=== PATIENT | male | born 1955 | race Caucasian/White ===

== ENCOUNTER 2017-05-11 15:58 | Emergency (ER) | payer MEDICAID, SELFPAY ==
[2017-05-11 16:28] VITALS: BP 131/82; PULSE 107; RESP 18; TEMP 36.9; O2SAT 94; BMI 20.3
[2017-05-11 16:38] LABS: UTC Influenza A Antigen Negative (Negative); UTC Influenza B Antigen Negative (Negative)
--- NOTE | 2017-05-11 16:39 | HMH.EDUTC ---
[facility] – [place] Disposition Clinical Impression: Acute bronchitis Qualifiers: Bronchitis organism: other organism Qualified Code(s): J20.8 - Acute bronchitis due to other specified organisms Disposition: Home, Self-Care Condition on Discharge: Good Additional Instructions: Antibiotics as ordered Follow-up with primary care on Saturday If symptoms worsen or do not improve return or be seen in the ER Tylenol or Motrin as needed for comfort Prescriptions: Azithromycin [Zithromax 250mg tab] 250 mg PO DIRECTED #6 tab Benzonatate [Tessalon Perle 100mg Cap] 100 mg PO BID PRN 7 Days #14 cap PRN Reason: Cough Referrals: Munir Douglas MD [Primary Care Provider] - Time of Disposition: 16:48 Medical Decision Making Vital Signs: 05/11/17 16:28 Temperature 98.4 F Temperature Source Temporal Artery Scan Pulse Rate [Right Brachial] 107 H Respiratory Rate 18 Blood Pressure [Right Arm] 131/82 Blood Pressure Mean [Right Arm] 98 Blood Pressure Source [Right Arm] Automatic Cuff Blood Pressure Position [Right Arm] Sitting 02 Sat by Pulse Oximetry 94 L Oxygen Delivery Method Room Air - Lab Data Lab Results 05/11/17 16:18: Influenza Type A Ag Negative, Influenza Type B Ag Negative Orders (Tests/Meds): ED MEDICATIONS Discontinued Medications Generic Name Dose Route Start Last Admin Trade Name Freq PRN Reason Stop Dose Admin Dexamethasone Sodium Phosphate 4 mg 05/11/17 16:48 Decadron 4mg/Ml 1ml Vial IM 05/11/17 16:49 ONCE ONE - Demetrius Inquiry Pt receiving controlled substance: No [facility] – [place] HPI - General Chief complaint: Shortness of Breath/Dyspnea Stated complaint: soa, cough, body aches Time Seen by Provider: 05/11/17 16:40 Mode of Arrival: Ambulatory Source of Information: Patient Limitations: No Limitations Description of Symptoms (Recalled from Triage Doc. by RN): ACHING, COUGH, SOA X2 DAYS HEENT Symptoms (Recalled from RN notes): No Resp Symptoms (Recalled from RN notes): Yes (COUGH, SOA) Skin Symptoms (Recalled from RN notes): No MS Symptoms (Recalled from RN notes): Yes (ACHES) Functional Status (Recalled from RN notes): N/A - History of Present Illness Provider Complaint: 62-year-old male presents today for cough, shortness of air, and tightness in his chest for 3 days. Patient states his was diagnosed with the flu she was given Tamiflu and Zithromax and he has taken 3 doses of the Zithromax. History of COPD. long discussion with pt he needed to be evaluaed in ed for chest pressure he decline macrina after long talk. - Related Data Previous Rx's Medication Instructions Recorded Azithromycin [Zithromax 250mg 250 mg PO DIRECTED #6 tab 05/11/17 tab] Benzonatate [Tessalon Perle 100mg 100 mg PO BID PRN 7 Days #14 cap 05/11/17 Cap] Allergies Allergy/AdvReac Type Severity Reaction Status Date / Time fenofibrate [FENOFIBRATE] Allergy Mild Verified 05/11/17 16:31 Rxpqovp-Lhf-Hcn Reductase Allergy Mild Verified 05/11/17 16:31 Inhibitor [[id number] REDUCTASE INHIBITOR] - Worker's Comp Is this a Worker's Comp case?: No [facility] History I have reviewed the patient's past medical history: Yes Medical History: Denies:: Cancer, Diabetes Mellitus Type 1, Diabetes Mellitus Type 2, MRSA Amputation: No Fractures: No - Social History Smoking Status: Current every day smoker Tobacco Type: cigarettes Alcohol Intake: never - Psychiatric History Expresses thoughts of harming self/others: None Suicide Plan Description: No Plan ROS Obtained: Yes All systems reviewed & no additional complaints, Yes Systems reviewed as appropriate & no additional complaints - Constitutional Constitutional: Reports system reviewed and no additional complaints, except as docu - Eyes Eyes: Reports system reviewed and no additional complaints, except as docu - ENT Ears, Nose, Mouth, and Throat: Reports system reviewed and no additional complaints, except a
--- NOTE | 2017-05-11 16:43 | ED_ITS ---
[facility] – [place] Disposition Clinical Impression: Acute bronchitis Qualifiers: Bronchitis organism: other organism Qualified Code(s): J20.8 - Acute bronchitis due to other specified organisms Disposition: Home, Self-Care Condition on Discharge: Good Additional Instructions: Antibiotics as ordered Follow-up with primary care on Saturday If symptoms worsen or do not improve return or be seen in the ER Tylenol or Motrin as needed for comfort Prescriptions: Azithromycin [Zithromax 250mg tab] 250 mg PO DIRECTED #6 tab Benzonatate [Tessalon Perle 100mg Cap] 100 mg PO BID PRN 7 Days #14 cap PRN Reason: Cough Referrals: Munir Douglas MD [Primary Care Provider] - Time of Disposition: 16:48 Medical Decision Making Vital Signs: 05/11/17 16:28 Temperature 98.4 F Temperature Source Temporal Artery Scan Pulse Rate [Right Brachial] 107 H Respiratory Rate 18 Blood Pressure [Right Arm] 131/82 Blood Pressure Mean [Right Arm] 98 Blood Pressure Source [Right Arm] Automatic Cuff Blood Pressure Position [Right Arm] Sitting 02 Sat by Pulse Oximetry 94 L Oxygen Delivery Method Room Air - Lab Data Lab Results 05/11/17 16:18: Influenza Type A Ag Negative, Influenza Type B Ag Negative Orders (Tests/Meds): ED MEDICATIONS Discontinued Medications Generic Name Dose Route Start Last Admin Trade Name Freq PRN Reason Stop Dose Admin Dexamethasone Sodium Phosphate 4 mg 05/11/17 16:48 Decadron 4mg/Ml 1ml Vial IM 05/11/17 16:49 ONCE ONE - Demetrius Inquiry Pt receiving controlled substance: No [facility] – [place] HPI - General Chief complaint: Shortness of Breath/Dyspnea Stated complaint: soa, cough, body aches Time Seen by Provider: 05/11/17 16:40 Mode of Arrival: Ambulatory Source of Information: Patient Limitations: No Limitations Description of Symptoms (Recalled from Triage Doc. by RN): ACHING, COUGH, SOA X2 DAYS HEENT Symptoms (Recalled from RN notes): No Resp Symptoms (Recalled from RN notes): Yes (COUGH, SOA) Skin Symptoms (Recalled from RN notes): No MS Symptoms (Recalled from RN notes): Yes (ACHES) Functional Status (Recalled from RN notes): N/A - History of Present Illness Provider Complaint: 62-year-old male presents today for cough, shortness of air , and tightness in his chest for 3 days. Patient states his was diagnosed with the flu she was given Tamiflu and Zithromax and he has taken 3 doses of the Zithromax. History of COPD. long discussion with pt he needed to be evaluaed in ed for chest pressure he decline macrina after long talk. - Related Data Previous Rx's Medication Instructions Recorded Azithromycin [Zithromax 250mg 250 mg PO DIRECTED #6 tab 05/11/17 tab] Benzonatate [Tessalon Perle 100mg 100 mg PO BID PRN 7 Days #14 cap 05/11/17 Cap] Allergies Allergy/AdvReac Type Severity Reaction Status Date / Time fenofibrate [FENOFIBRATE] Allergy Mild Verified 05/11/17 16:31 Rmikhfg-Eyv-Khr Reductase Allergy Mild Verified 05/11/17 16:31 Inhibitor [[id number] REDUCTASE INHIBITOR] - Worker's Comp Is this a Worker's Comp case?: No [facility] History I have reviewed the patient's past medical history: Yes Medical History: Denies:: Cancer, Diabetes Mellitus T
[2017-05-11 17:03] VITALS: BP 131/82; PULSE 107; RESP 18; TEMP 36.9; O2SAT 94
== END 2017-05-11 17:04 | disposition home or self-care (01) ==
PROVIDERS: Emergency Provider Nurse Practitioner Family; Family Provider Family Medicine; PCP Emergency Medicine
DX: J44.0 Chronic obstructive pulmonary disease with (acute) lower respiratory infection; F17.210 Nicotine dependence, cigarettes, uncomplicated; Z88.8 Allergy status to other drugs, medicaments and biological substances
CPT/HCPCS: 87804; 96372; 99202

== ENCOUNTER → 2017-05-27 15:35 | Outpatient (REF) | payer MEDICAID, SELFPAY ==
[2017-05-27 18:27] LABS: Basophils # 0.1 K/mm3 (0-0.2); Basophils % 0.7 % (0.1-2.0); Eosinophils # 0.3 K/mm3 (0.0-0.4); Hematocrit 47.5 % (42.0-52.0); Hemoglobin 15.6 g/dL (14.1-18.0); Lymphocytes # 3.5 K/mm3 (0.7-4.5); Mean Corpuscular HGB Conc 32.8 g/dL (31.8-35.4); Mean Corpuscular Volume 97.7 fl (80-94); Mean Platelet Volume 8.6 fl (7.4-10.4); Monocytes % 7.3 % (1.7-9.3); Platelet Count 343 K/mm3 (142-424); Red Blood Count 4.86 M/mm3 (4.60-6.20); Red Cell Distribution Width 12.9 % (11.5-17.5); White Blood Count 13.9 K/mm3 (4.8-10.8)
[2017-05-27 18:52] LABS: Alanine Aminotransferase 41 U/L (12-78); Albumin Level 3.8 gm/dL (3.4-5.0); Alkaline Phosphatase 118 U/L (46-116); Aspartate Amino Transferase 20 U/L (15-37); Bilirubin,Total 0.4 mg/dL (0.2-1.0); Blood Urea Nitrogen 9 mg/dL (7-18); Calcium 8.9 mg/dL (8.5-10.1); Carbon Dioxide 27 mmol/L (21.0-32.0); Chloride 103 mmol/L (98-107); Chol/HDL Ratio 3.5 (1-3.5); Cholesterol 183 mg/dL (140-200); Creatinine,Serum 0.82 mg/dL (0.70-1.30); Estimated Glomerular Filt Rate 95 ml/min (>60); GFR (African American) 115 ML/MIN (>60); Globulin 3.7 gm/dl (1.3-3.2); Glucose 100 mg/dL (74-106); HDL Cholesterol 52 mg/dL (27-67); LDL Cholesterol 74 mg/dL (0-130); Sodium 140 mmol/L (136-145); T4 (Thyroxine) 10.5 ug/dl (4.7-13.3); Thyroid Stimulating Hormone 0.89 uIU/ml (0.358-3.740); Total Protein,Serum 7.5 gm/dL (6.4-8.2); Triglycerides 284 mg/dL (30-200); VLDL Cholesterol 57 mg/dL (0-40)
[2017-05-27 20:08] LABS: Hemoglobin A1C 5.7 % (0.0-7.0)
[2017-05-29 10:26] LABS: Vitamin D 25 Hydroxy 12.8 ng/mL (30.0-100.0)
== END ==
LOC: LAB 15:35
PROVIDERS: Visit Provider Nurse Practitioner Family
DX: R53.83 Other fatigue (principal)
CPT/HCPCS: 80053; 80061; 82652; 83036; 84436; 84443; 85025

== ENCOUNTER → 2018-03-03 14:03 | Outpatient (CLI) | payer MEDICAID, SELFPAY ==
[2018-03-03 15:44] LABS: Alanine Aminotransferase 60 U/L (12-78); Albumin Level 4.1 gm/dL (3.4-5.0); Albumin/Globulin Ratio 1.1 (1.1-1.8); Alkaline Phosphatase 131 U/L (46-116); Anion Gap 12.4 mEq/L (5-15); Aspartate Amino Transferase 73 U/L (15-37); Bilirubin,Total 0.5 mg/dL (0.2-1.0); Blood Urea Nitrogen 7 mg/dL (7-18); Calcium 9.5 mg/dL (8.5-10.1); Carbon Dioxide 28 mmol/L (21.0-32.0); Chloride 99 mmol/L (98-107); Chol/HDL Ratio 5.3 (1-3.5); Cholesterol 228 mg/dL (140-200); Creatinine,Serum 0.84 mg/dL (0.70-1.30); Estimated Glomerular Filt Rate 92 ml/min (>60); GFR (African American) 111 ML/MIN (>60); Globulin 3.9 gm/dl (1.3-3.2); Glucose 101 mg/dL (74-106); HDL Cholesterol 43 mg/dL (27-67); LDL Cholesterol 152 mg/dL (0-130); Potassium 4.4 mmoL/L (3.5-5.1); Sodium 135 mmol/L (136-145); Triglycerides 164 mg/dL (30-200); VLDL Cholesterol 33 mg/dL (0-40)
[2018-03-05 14:16] LABS: Vitamin D 25 Hydroxy 64.9 ng/mL (30.0-100.0)
== END ==
PROVIDERS: Visit Provider Nurse Practitioner Family
DX: E55.9 Vitamin D deficiency, unspecified (principal); R53.83 Other fatigue; E78.5 Hyperlipidemia, unspecified
CPT/HCPCS: 80053; 80061; 82652

== ENCOUNTER → 2018-09-25 13:24 | Outpatient (CLI) | payer MEDICAID, SELFPAY ==
[2018-09-25 14:57] LABS: Alanine Aminotransferase 33 U/L (12-78); Albumin Level 3.9 gm/dL (3.4-5.0); Alkaline Phosphatase 135 U/L (46-116); Anion Gap 12.8 mEq/L (5-15); Aspartate Amino Transferase 21 U/L (15-37); Bilirubin,Total 0.5 mg/dL (0.2-1.0); Blood Urea Nitrogen 8 mg/dL (7-18); Calcium 9.6 mg/dL (8.5-10.1); Carbon Dioxide 29 mmol/L (21.0-32.0); Chloride 101 mmol/L (98-107); Chol/HDL Ratio 4.8 (1-3.5); Cholesterol 240 mg/dL (140-200); Creatinine,Serum 0.77 mg/dL (0.70-1.30); Estimated Glomerular Filt Rate 102 ml/min (>60); GFR (African American) 123 ML/MIN (>60); Globulin 3.8 gm/dl (1.3-3.2); Glucose 94 mg/dL (74-106); HDL Cholesterol 50 mg/dL (27-67); LDL Cholesterol 151 mg/dL (0-130); Potassium 4.8 mmoL/L (3.5-5.1); Sodium 138 mmol/L (136-145); Total Protein,Serum 7.7 gm/dL (6.4-8.2); Triglycerides 196 mg/dL (30-200); VLDL Cholesterol 39 mg/dL (0-40)
== END ==
PROVIDERS: Visit Provider Nurse Practitioner Family
DX: Z00.00 Encounter for general adult medical examination without abnormal findings (principal); J34.89 Other specified disorders of nose and nasal sinuses
CPT/HCPCS: 80053; 80061

== ENCOUNTER 2019-08-24 11:02 | Emergency (ER) | payer MEDICAID, SELFPAY ==
[2019-08-24 11:01] VITALS: BP 161/95; PULSE 104; RESP 12; TEMP 36.8; O2SAT 98; BMI 21.9
--- NOTE | 2019-08-24 11:03 | ECG_ITS ---
APPROVED REPORT Exam: Resting ECG HR:97 bpm ECG Measurements Heart Rate 97 AXES GA 170 P -11 QRSd 78 QRS 2 QT 364 T -5 QTc 462 <Conclusion> Sinus rhythm with occasional premature atrial complexes Otherwise normal ECG Electronically signed by : Brent Barton, 08/25/2019 13:23:23
--- NOTE | 2019-08-24 11:12 | CT_ITS ---
PROCEDURE: CT HEAD/BRAIN WO CON CLINICAL INDICATION: GENERALIZED WEAKNESS COMPARISON: No exams were available for comparison TECHNIQUE: Axial images obtained. All CT scans at the facility use one or more dose reduction, viz: automated exposure control, ma/kV adjustment per patient size (including targeted exams where dose is matched to indication, i.e. head), or iterative reconstruction technique. FINDINGS: No midline shift, mass effect, intracranial hemorrhage, hydrocephalus, or extra-axial fluid collection is evident. There is generalized atrophy with hypoattenuation of the periventricular white matter consistent with microangiopathic changes. The calvarium has an unremarkable appearance. No mastoid effusion. Mucosal thickening involves the ethmoid sinuses. There is lobular mucosal thickening involving the central aspect of frontal sinus and could be due to retention cyst IMPRESSION: No acute intracranial finding Dictated by: Kirk Ackerman MD 08/24/2019 12:14 Electronically signed by Kirk Ackerman MD in [place] 08/24/2019 12:14
--- NOTE | 2019-08-24 11:17 | CT_ITS ---
Procedure: CT ANGIO HEAD CLINICAL HISTORY: Weakness Generalized weakness COMPARISON: CT HEAD/BRAIN WO CON from 08/24/2019 TECHNIQUE: IV Contrast: 100ml Optiray 350 Axial images obtained with sagittal and coronal reformats. All CT scans at the facility use one or more dose reduction, viz: automated exposure control, ma/kV adjustment per patient size (including targeted exams where dose is matched to indication, i.e. head), or iterative reconstruction technique. FINDINGS: No aneurysm, arteriovenous malformation, or major intracranial occlusive process evident. Atherosclerotic changes are present involving the internal carotids bilaterally with calcific plaque with less than 50 percent stenosis. There is some luminal irregularity in the cavernous portion of the carotids with some minimal dilatation. This is consistent with atherosclerotic changes. No enhancing lesions are evident. IMPRESSION: Atheromatous changes. No aneurysm AVM or other significant anomaly. Dictated by: Kirk Ackerman MD 08/24/2019 12:42 Electronically signed by iKrk Ackerman MD in [place] 08/24/2019 12:42
--- NOTE | 2019-08-24 11:17 | CT_ITS ---
Procedure: CT ANGIO NECK CLINICAL HISTORY: Weakness Weakness COMPARISON: CXR CHEST(2 VIEWS-NOT PORTABLE) from 04/13/2013 CXR CHEST(2 VIEWS-NOT PORTABLE) from 04/07/2015 TECHNIQUE: IV Contrast: 100ml Optiray 350 Axial images obtained with sagittal and coronal reformats. All CT scans at the facility use one or more dose reduction, viz: automated exposure control, ma/kV adjustment per patient size (including targeted exams where dose is matched to indication, i.e. head), or iterative reconstruction technique. FINDINGS: There are atherosclerotic changes within the aortic arch and at the ostia the left subclavian artery. No significant stenosis of the great vessels. Right carotid: Atheromatous changes involve the ostium of the internal carotid artery on the right. There is some eccentric plaque at this area with 25 percent stenosis. Mild amount of soft plaque is present in the proximal right internal carotid. No significant stenotic lesions are evident on the right. Left carotid: Left carotid originates from the aortic arch with some minimal calcific plaque at the ostium without stenosis. Fibrocalcific plaque is present at the ostium of the internal carotid on the left with 25-30 percent stenosis. Small amount of plaque is present in the bulb without significant stenosis. Mid distal left ICA have an unremarkable appearance. The left vertebral is dominant with no significant stenosis. There is ostial narrowing of the right vertebral of approximately 40 percent. Nonvascular COPD with centrilobular emphysema. Partially calcified conglomerate mass noted in the right upper lobe. Bullous changes are present in the lung apices. There is asymmetric increase in soft tissue density in the left parapharyngeal region at the level of the uvula. Please correlate with direct visualization. A soft tissue mass/neoplasm is considered. This area measures approximately 1.9 cm by 1.3 cm. The uvula is slightly shifted toward the right. IMPRESSION: 1. No hemodynamic significant stenotic lesion of the great vessels or carotid arteries. There are scattered atheromatous changes as described above 2. Dominant left vertebral artery with 40 percent stenosis of the ostium of a small right vertebral artery. 3. Left parapharyngeal mass 1.9 x 1.3 cm. Recommend direct visualization. Neoplasm is considered 4. Centrilobular and panlobular emphysema with apical bullous changes with conglomerate mass in the right upper lobe Dictated by: Kirk Ackerman MD 08/24/2019 12:35 Electronically signed by Kirk Ackerman MD in [place] 08/24/2019 12:35
[2019-08-24 11:26] LABS: Basophils # 0.1 K/mm3 (0-0.2); Basophils % 0.5 % (0.1-2.0); Eosinophils # 0.2 K/mm3 (0.0-0.4); Eosinophils % 1.1 % (0.1-12.0); Hematocrit 47.9 % (42.0-52.0); Hemoglobin 16.6 g/dL (14.1-18.0); Lymphocytes # 3.5 K/mm3 (0.7-4.5); Lymphocytes % 24.7 % (10-50); Mean Corpuscular HGB Conc 34.6 g/dL (31.8-35.4); Mean Corpuscular Hemoglobin 33.5 pg (27.0-31.2); Mean Corpuscular Volume 96.8 fl (80-94); Mean Platelet Volume 8.4 fl (7.4-10.4); Monocytes # 0.8 K/mm3 (0.1-1.0); Monocytes % 5.7 % (1.7-9.3); Neutrophils # 9.5 K/mm3 (1.8-7.8); Neutrophils % 67.9 % (37.0-80.0); Platelet Count 300 K/mm3 (142-424); Red Blood Count 4.95 M/mm3 (4.60-6.20); Red Cell Distribution Width 13.1 % (11.5-17.5)
[2019-08-24 11:29] LABS: Chloride 103 mmol/L (98-107); Potassium 4.1 mmoL/L (3.5-5.1); Sodium 133 mmol/L (136-145)
[2019-08-24 11:32] LABS: Alanine Aminotransferase 24 U/L (12-78); Albumin Level 4.4 g/dl (3.5-5.0); Albumin/Globulin Ratio 1.3 (1.1-1.8); Alkaline Phosphatase 137 U/L (38-126); Anion Gap 11.1 mEq/L (5-15); Aspartate Amino Transferase 31 U/L (17-59); Bilirubin,Total 0.6 mg/dl (0.2-1.3); Blood Urea Nitrogen 4 mg/dl (9-20); Carbon Dioxide 23 mmol/L (22.0-30.0); Creatinine Clearance Estimated 66 mL/min (50-200); Estimated Glomerular Filt Rate 135 ml/min (>60); GFR (African American) 164 ML/MIN (>60); Globulin 3.4 g/dL (1.3-3.2); Total Protein,Serum 7.8 g/dl (6.3-8.2)
[2019-08-24 11:33] LABS: Calcium 9.6 mg/dl (8.4-10.2); Glucose 126 mg/dl (74-100)
[2019-08-24 11:45] LABS: Troponin I < 0.01 ng/ml (0.00-0.034)
--- NOTE | 2019-08-24 12:00 | HMH.EDGENADL ---
ED Disposition Clinical Impression: TIA (transient ischemic attack) Disposition: Home, Self-Care Condition on Discharge: Good Additional Instructions: After reviewing your labs and radiology, discussing your case with your primary care physician Dr. Douglas discharging you home at this time. You are to continue taking oral aspirin 81 mg once per day. After Stella wishes you to read present at his doctor's office at 10 AM tomorrow for further evaluation for your possible transient ischemic attack. Highly recommend that you keep this scheduled appointment. Should your symptoms worsen, please return to the emergency department for further evaluation. Referrals: Munir Douglas MD [Primary Care Provider] - - Critical Care Critical Care Time: No Attestation: On 08/24/19, the high probability of a clinically significant, sudden or life threatening deterioration of the following system(s) required my full and direct attention, intervention and personal management. The time I documented below is in addition to time spent performing reported procedures but includes the following listed in this critical care notation. Medical Decision Making - Demetrius Inquiry Pt receiving controlled substance: No Demetrius was queried for this patient: No Vital Signs: 08/24/19 11:01 08/24/19 12:33 08/24/19 13:44 Temperature 98.2 F Temperature Source Oral Pulse Rate [Right Radial] 104 H 101 H 95 H Respiratory Rate 12 17 Blood Pressure [Right Arm] 161/95 H 141/79 H 145/79 H Blood Pressure Mean [Right Arm] 117 99 101 Blood Pressure Source [Right Arm] Automatic Cuff Automatic Cuff Automatic Cuff Blood Pressure Position [Right Arm] Sitting Supine Supine 02 Sat by Pulse Oximetry 98 100 99 Oxygen Delivery Method Room Air Nasal Cannula Oxygen Flow Rate (LPM) 2 - Lab Data Lab Results 08/24/19 11:00: WBC 14.0 H, RBC 4.95, Hgb 16.6, Hct 47.9, MCV 96.8 H, MCH 33.5 H, MCHC 34.6, RDW 13.1, Plt Count 300, MPV 8.4, Neut % (Auto) 67.9, Lymph % (Auto) 24.7, [place] % (Auto) 5.7, Eos % (Auto) 1.1, Baso % (Auto) 0.5, Neut # (Auto) 9.5 H, Lymph # (Auto) 3.5, [place] # (Auto) 0.8, Eos # (Auto) 0.2, Baso # (Auto) 0.1 08/24/19 11:00: Sodium 133 L, Potassium 4.1, Chloride 103, Carbon Dioxide 23, Anion Gap 11.1, BUN 4 L, Creatinine 0.60 L, Estimated Creat Clear 66, Estimated GFR 135, Est GFR ( Amer) 164, Glucose 126 H, Calcium 9.6, Total Bilirubin 0.6, AST 31, ALT 24, Alkaline Phosphatase 137 H, Troponin I < 0.01, Total Protein 7.8, Albumin 4.4, Globulin 3.4 H, Albumin/Globulin Ratio 1.3 08/24/19 13:02: Urine Color Yellow, Urine Appearance Clear, Urine pH 7.0, Ur Specific [place] <= 1.005, Urine Protein Negative, Urine Glucose (UA) Negative, Urine Ketones Negative, Urine Blood Negative, Urine Nitrate Negative, Urine Bilirubin Negative, Urine Urobilinogen 0.2, Ur Leukocyte Esterase Negative, Urine RBC Occasional, Urine WBC 3-5, Ur Squamous Epith Cells Occasional, Urine Bacteria None 08/24/19 14:15: Troponin I < 0.01 Result diagrams: 08/24/19 11:00 08/24/19 11:00 Orders (Tests/Meds): ED MEDICATIONS Discontinued Medications Generic Name Dose Route Start Last Admin Trade Name Salome PRN Reason Stop Dose Admin Acetaminophen 500 mg 08/24/19 12:00 08/24/19 12:10 Tylenol 500mg Tablet PO 08/24/19 12:01 500 mg ONCE ONE Administration Ibuprofen 400 mg 08/24/19 12:00 08/24/19 12:10 Motrin 400mg Tablet PO 08/24/19 12:01 400 mg ONCE ONE Administration Ioversol 100 ml 08/24/19 12:00 08/24/19 12:02 Rad-Optiray 350 100ml Vial IV 08/24/19 12:01 100 ml ONCE ONE Administration Protocol Sodium Chloride 50 ml 08/24/19 12:00 08/24/19 12:02 Rad-Ns 50ml Vial IV 08/24/19 12:01 50 ml ONCE ONE Administration Sodium Chloride 10 ml 08/24/19 12:00 08/24/19 12:02 Rad-Saline Flush 10ml Syringe IV 08/24/19 12:01 10 ml ONCE ONE Administration ORDERS Category Date Time Status Troponin I Q3H Lab 08/24/19 17
[2019-08-24 12:33] VITALS: BP 141/79; PULSE 101; RESP 17; O2SAT 100
[2019-08-24 13:09] LABS: Microscopic, Urine URINE MICROSCOPIC (MICROSCOPIC)
[2019-08-24 13:10] LABS: Appearance,Urine CLEAR (Clear); Bilirubin,Urine Negative (Negative); Blood, Urine Negative (Negative); Color,Urine YELLOW (Yellow); Glucose,Urine (UA) Negative (Negative); Ketones,Urine Negative (Negative); Leukocyte Esterase,Urine Negative (Negative); Nitrate,Urine Negative (Negative); Protein,Urine Negative (Negative); Specific Gravity, Urine <= 1.005 (1.005-1.030); Urobilinogen,Urine 0.2 EU/dl (0.2)
[2019-08-24 13:21] LABS: RBC,Urine Occasional #/hpf (0-3); Squamous Epithelial Cell,Urine Occasional #/hpf (0-5)
--- NOTE | 2019-08-24 13:21 | PC.NURSE ---
Paged Dr Douglas at this time
--- NOTE | 2019-08-24 13:40 | PC.NURSE ---
speaking to Dr Douglas
[2019-08-24 13:44] VITALS: BP 145/79; PULSE 95; O2SAT 99
[2019-08-24 14:50] LABS: Troponin I < 0.01 ng/ml (0.00-0.034)
[2019-08-24 15:12] VITALS: BP 140/85; PULSE 80; RESP 20; TEMP 36.8; O2SAT 98
== END 2019-08-24 15:15 | disposition home or self-care (01) ==
PROVIDERS: Emergency Provider Emergency Medicine; PCP Emergency Medicine
DX: G45.8 Other transient cerebral ischemic attacks and related syndromes (principal); I10 Essential (primary) hypertension; E78.5 Hyperlipidemia, unspecified; J44.9 Chronic obstructive pulmonary disease, unspecified; Z79.899 Other long term (current) drug therapy; Z88.8 Allergy status to other drugs, medicaments and biological substances
CPT/HCPCS: 36415; 70450; 70496; 70498; 80053; 81001; 84484; 85025; 93005; 99284; Q9967

== ENCOUNTER 2022-06-11 00:58 | Inpatient (IN) | payer MEDICARE, SELFPAY ==
[2022-06-11] VITALS (13 sets, daily range): BP systolic 130–171; BP diastolic 70–111; PULSE 65–110; RESP 15–20; TEMP 36.6–36.9; O2SAT 88–99; BMI 14.9; BMI 15.2
--- NOTE | 2022-06-11 01:08 | XR_ITS ---
PROCEDURE INFORMATION: Exam: XR Left Hip Exam date and time: 06/11/2022 1:41 AM Age: 67 years old Clinical indication: Injury or trauma; Fall; Additional info: Fall left hip pain TECHNIQUE: Imaging protocol: Radiologic exam of the left hip. Views: 2 or 3 views hip with pelvis when performed. COMPARISON: No relevant prior studies available. FINDINGS: Bones/joints: Severe degenerative changes of the lower lumbar spine. Moderate bilateral hip joint space narrowing. Left femoral head and neck junction impacted acute fracture. No dislocation. Soft tissues: Unremarkable. IMPRESSION: Left femoral fracture.
--- NOTE | 2022-06-11 01:08 | XR_ITS ---
PROCEDURE INFORMATION: Exam: XR Chest Exam date and time: 06/11/2022 1:41 AM Age: 67 years old Clinical indication: Injury or trauma; Fall TECHNIQUE: Imaging protocol: Radiologic exam of the chest. Views: 1 view. COMPARISON: CT ANGIO NECK 08/24/2019 11:46 AM FINDINGS: Lungs: The lungs are hyperinflated. Diffuse prominence of the interstitium. Right upper lobe scarring with multiple clustered granulomas. Additional left lower lobe small granuloma. Pleural spaces: Unremarkable. No pleural effusion. No pneumothorax. Heart/Mediastinum: Unremarkable. No cardiomegaly. Bones/joints: Unremarkable. IMPRESSION: No definite acute findings. Chronic emphysematous changes.
--- NOTE | 2022-06-11 01:08 | CT_ITS ---
PROCEDURE INFORMATION: Exam: CT Head Without Contrast Exam date and time: 06/11/2022 1:42 AM Age: 67 years old Clinical indication: Injury or trauma; Fall TECHNIQUE: Imaging protocol: Computed tomography of the head without contrast. Radiation optimization: All CT scans at this facility use at least one of these dose optimization techniques: automated exposure control; mA and/or kV adjustment per patient size (includes targeted exams where dose is matched to clinical indication); or iterative reconstruction. REPORTING DATA: Count of CT and Cardiac NM exams in prior 12 months: This patient has received 2 known CTs and 0 known cardiac nuclear medicine studies in the 12 months prior to the current study. COMPARISON: CT HEAD/BRAIN WO CON 08/24/2019 11:42 AM FINDINGS: Brain: [id number] atrophy. No intracranial hemorrhage. No mass. Several scattered foci of decreased attenuation within periventricular/subcortical white matter. No edema. Cerebral ventricles: No hydrocephalus. Paranasal sinuses: Scattered minimal mucosal thickening. Mastoid air cells: No significant effusion. Orbital cavities: Small calcification or foreign body along RIGHT anterior globe. Bones/joints: No acute fracture. Soft tissues: Unremarkable. Vasculature: Atherosclerotic disease of intracranial arteries. IMPRESSION: 1. No intracranial hemorrhage. 2. Probable chronic microvascular ischemic changes. 3. Small calcification or foreign body along RIGHT globe.
--- NOTE | 2022-06-11 01:08 | CT_ITS ---
PROCEDURE INFORMATION: Exam: CT Cervical Spine Without Contrast Exam date and time: 06/11/2022 1:44 AM Age: 67 years old Clinical indication: Injury or trauma; Fall TECHNIQUE: Imaging protocol: Computed tomography of the cervical spine without contrast. Radiation optimization: All CT scans at this facility use at least one of these dose optimization techniques: automated exposure control; mA and/or kV adjustment per patient size (includes targeted exams where dose is matched to clinical indication); or iterative reconstruction. REPORTING DATA: Count of CT and Cardiac NM exams in prior 12 months: This patient has received 2 known CTs and 0 known cardiac nuclear medicine studies in the 12 months prior to the current study. COMPARISON: CT ANGIO NECK 08/24/2019 11:46 AM FINDINGS: Bones/joints: No acute fracture. Degenerative retrolithesis of mid cervical spine. Degenerative retrolithesis of lower cervical spine. Discs/Spinal canal/Neural foramina: Severe degenerative disc disease within mid cervical spine. Severe degenerative disc disease within lower cervical spine.Moderate indentation thecal sac/cord midcervical spine. Mild indentation thecal sac/cord lower cervical spine. Neuroforaminal narrowing within mid and lower cervical spine. Lungs: Emphysematous changes. Vasculature: Atherosclerotic disease of visualized arteries. Soft tissues: Unremarkable. IMPRESSION: No fracture.
[2022-06-11 01:20] LABS: Basophils # 0.1 K/mm3 (0-0.2); Basophils % 1.1 % (0.1-2.0); Eosinophils # 0.2 K/mm3 (0.0-0.4); Eosinophils % 1.8 % (0.1-12.0); Hemoglobin 13.8 g/dL (14.1-18.0); Lymphocytes # 2.4 K/mm3 (0.7-4.5); Lymphocytes % 27.2 % (10-50); Mean Corpuscular HGB Conc 32.1 g/dL (31.8-35.4); Mean Corpuscular Hemoglobin 33.3 pg (27.0-31.2); Mean Corpuscular Volume 103.7 fl (80-94); Mean Platelet Volume 8.7 fl (7.4-10.4); Monocytes # 0.5 K/mm3 (0.1-1.0); Monocytes % 5.9 % (1.7-9.3); Neutrophils # 5.7 K/mm3 (1.8-7.8); Platelet Count 233 K/mm3 (142-424); Red Blood Count 4.15 M/mm3 (4.60-6.20); Red Cell Distribution Width 13.3 % (11.5-17.5); White Blood Count 8.9 K/mm3 (4.8-10.8)
[2022-06-11 01:23] LABS: Chloride 94 mmol/L (98-107); Potassium 3.8 mmoL/L (3.5-5.1); Sodium 129 mmol/L (136-145)
[2022-06-11 01:26] LABS: Alanine Aminotransferase 101 U/L (12-78); Albumin Level 4.3 g/dl (3.5-5.0); Albumin/Globulin Ratio 1.4 (1.1-1.8); Alkaline Phosphatase 113 U/L (38-126); Anion Gap 12.8 mEq/L (5-15); Aspartate Amino Transferase 107 U/L (17-59); Bilirubin,Total 0.4 mg/dl (0.2-1.3); Blood Urea Nitrogen 6 mg/dl (9-20); Calcium 8.2 mg/dl (8.4-10.2); Carbon Dioxide 26 mmol/L (22.0-30.0); Creatinine Clearance Estimated 50 mL/min (50-200); Estimated Glomerular Filt Rate 165 ml/min (>60); Ethyl Alcohol 249 mg/dl (0-10); GFR (African American) 200 ML/MIN (>60); Glucose 136 mg/dl (74-100); Total Protein,Serum 7.3 g/dl (6.3-8.2)
--- NOTE | 2022-06-11 01:37 | PC.NURSE ---
Pt gone to RAD via stretcher
--- NOTE | 2022-06-11 01:38 | CT_ITS ---
PROCEDURE INFORMATION: Exam: CT Left Lower Extremity Without Contrast, Hip Exam date and time: 06/11/2022 1:47 AM Age: 67 years old Clinical indication: Injury or trauma; Fall; Additional info: Hip FX TECHNIQUE: Imaging protocol: CT of the left lower extremity without contrast was performed. Exam focused on the hip. Radiation optimization: All CT scans at this facility use at least one of these dose optimization techniques: automated exposure control; mA and/or kV adjustment per patient size (includes targeted exams where dose is matched to clinical indication); or iterative reconstruction. REPORTING DATA: Count of CT and Cardiac NM exams in prior 12 months: This patient has received 2 known CTs and 0 known cardiac nuclear medicine studies in the 12 months prior to the current study. COMPARISON: CR XR HIP LT 2-3V W/PELVIS 06/11/2022 1:41 AM FINDINGS: Bones/joints: Moderate narrowing of the left hip joint space. There is a impacted mildly displaced comminuted acute fracture of the left femoral head and neck junction. No dislocation detected. Soft tissues: Normal. IMPRESSION: Left femoral acute fracture as described.
--- NOTE | 2022-06-11 01:38 | ECG_ITS ---
APPROVED REPORT Exam: Resting ECG HR:102 bpm ECG Measurements Heart Rate 102 AXES NH 156 P 80 QRSd 92 QRS 80 QT 362 T 77 QTc 421 Conclusion SINUS TACHYCARDIA ABNORMAL RHYTHM ECG UNCONFIRMED REPORT Electronically signed by : Peng Pelaez MD 06/12/2022 03:05:07
--- NOTE | 2022-06-11 01:38 | HMH.EDFALL ---
Discharge Plan Disposition Patient Disposition: Admitted As Inpatient Chief Complaint: Fall Prescriptions Prescriptions: No Action lisinopril 5 mg Tablet 5 mg PO DAILY Referrals Follow up/Referrals: Ziggy Layne MD [Primary Care Provider] - See instructions Clinical Impressions Clinical Impression: Closed hip fracture, Alcohol intoxication Discharge ED Provider: Stella (ED)Munir HPI General Chief Complaint: Fall Stated Complaint: Fall Time Seen by Provider: 06/11/22 01:39 Mode of Arrival: EMS Source of Information: Patient, Spouse, EMS and Medical Record Limitations: Physical Limitations Description of Symptoms (Recalled from ER Triage Doc. by RN): pt to the ED after falling off his barstool at home. pt reports he fell and landed on his left side. pt denies any head/ neck injury. pt reports left hip pain and drinking 14 beers in the spand of the day. History of Present Illness HPI Narrative: fall at home with lt hip pain - has been using etoh - no other c/o MD complaint: fall Onset (ago): hour(s) Fall from: chair Fall witnessed: no Place fall occurred: home Loss of consciousness: none Prolonged down time: no Symptoms prior to fall: none Context: alcohol use Location of injury - extremities: Left: thigh Severity: moderate Associated symptoms (after fall): denies Related Data Home Medications Medication Instructions Recorded Confirmed lisinopril 5 mg tablet 5 mg PO DAILY High blood pressure 06/11/22 06/11/22 Allergies Allergy/AdvReac Type Severity Reaction Status Date / Time fenofibrate [FENOFIBRATE] Allergy Mild Verified 04/27/21 11:51 Vstwdnj-FXW-IoP Reductase Allergy Mild Verified 04/27/21 11:51 Inhibitor [HMMNLQF-FCZ-DPM REDUCTASE INHIBITOR] [facility] Disclaimer: The information contained in this section may have been updated after the patient was seen, as this information can be updated by other users. Social History Smoking Status: Current every day smoker tobacco type: cigarettes packs per day: 1 alcohol intake: current substance use type: denies use current occupational status: retired Travel in the last 8 weeks: None household members: spouse housing: house ROS Obtained: Yes All systems reviewed & no additional complaints except as documented Physical Exam General General appearance: alert Head Head exam: normocephalic Eye Eye exam: Present PERRL and EOMI ENT ENT exam: Present mucous membranes dry Neck Neck exam: Present trachea midline Respiratory Respiratory exam: Present other (bilat rhonchi ); Absent respiratory distress Cardiovascular Cardiovascular exam: Present regular rate and systolic murmur Abdominal Exam Abdominal exam: Present soft Expanded Lower Extremity Exam Left: Hip/Pelvis exam: Present tenderness, shortening of leg and pain on hip/pelvis palpation Neurovascular/Tendon exam: Absent pulse deficit Neurological Exam Neurological exam: Present alert, oriented X3, CN II-XII intact and other (gcs=15); Absent motor sensory deficit Psychiatric Psychiatric exam: Present normal affect Skin Skin exam: Absent rash Medical Decision Making Medical Records Medical records reviewed: Yes I reviewed the patient's medical records. Demetrius Inquiry Pt receiving controlled substance: No Vital Signs: 06/11/22 00:58 Temperature 98.3 F Temperature Source Oral Pulse Rate [Left Radial] 101 H Respiratory Rate 15 Blood Pressure [Right Arm] 144/83 H Blood Pressure Mean [Right Arm] 103 Blood Pressure Source [Right Arm] Automatic Cuff Blood Pressure Position [Right Arm] Sitting 02 Sat by Pulse Oximetry 88 L Oxygen Delivery Method Room Air Lab Data Lab results reviewed: Yes I reviewed the patient's lab results. Lab Results 06/11/22 01:00: WBC 8.9, RBC 4.15 L, Hgb 13.8 L, Hct 43.0, MCV 103.7 H, MCH 33.3 H, MCHC 32.1, RDW 13.3, Plt Count 233, MPV 8.7, Neut % (Auto) 64.0, Lymph % (Auto) 27.2, [place] % (Au
[2022-06-11 01:59] LABS: Coronavirus 19, PCR Not Detected (NotDetected); Influenza A, PCR Not Detected (NotDetected); Influenza B, PCR Not Detected (NotDetected)
--- NOTE | 2022-06-11 04:06 | PC.NURSE ---
Pt readjusted in bed. No other needs at this time.
[2022-06-11 04:31] LABS: Triglycerides 87 mg/dl (30-150); VLDL Cholesterol 17 mg/dL (0-40)
[2022-06-11 04:32] LABS: Chol/HDL Ratio 1.8 (1-3.5); Cholesterol 173 mg/dl (140-200); HDL Cholesterol 96 mg/dl (40-60); Magnesium 1.8 mg/dl (1.6-2.3)
[2022-06-11 04:34] LABS: Activated Partial Thrombo Time 26.2 seconds (22.8-30.6); INR 0.93 (0.9-1.1); Prothrombin Time 10.1 seconds (10.1-12.5)
--- NOTE | 2022-06-11 04:36 | EXP.HP ---
History of Present Illness *Admission Date: 06/11/22 *Reason for visit:: Fall *History of present illness: This is a 67-year-old male with past medical history of hypertension and alcohol abuse who presents emergency department today after falling off his barstool. He reports increased alcohol intake this evening up to 15 beers and fell off his barstool landing on his left side. He had immediate pain on his left side with inability to ambulate. He does endorse chronic heavy drinking up to 8 beers daily but states he drank more last night due Circumstances within his social life. He also admits to heavy smoking, 2 packs/day. He reports prior history of withdrawal symptoms to include daily tremors prior to engaging in alcohol intake.He denies any chest pain, shortness of breath or palpitations prior to the fall. Emergency department work-up significant for left femoral head fracture noted on CT. All other traumagram without abnormalities. Alcohol level 249 at the time of admission.All other laboratory evaluation stable except for mild hyponatremia.He is admitted to the hospital service for further evaluation and management. [facility] Disclaimer: The information contained in this section may have been updated after the patient was seen, as this information can be updated by other users. Medical History Asthma COPD (chronic obstructive pulmonary disease) History of transient ischemic attack (TIA) Hypertension Family History (Updated 06/11/22 @ 05:20 by Valerie White RN) No significant family history Social History (Updated 06/11/22 @ 05:22 by Valerie White RN) Smoking Status: Current every day smoker tobacco type: cigarettes packs per day: 1 alcohol intake: current substance use type: denies use current occupational status: retired Travel in the last 8 weeks: None household members: spouse housing: house marital status: Review of Systems Review of Systems Review of systems:: pertinent systems reviewed and negative unless documented below *Musculoskeletal Musculoskeletal: Reports arthralgias, Reports deformity and Reports limited range of motion Psychiatric Psychiatric: Reports depression and Reports hopelessness Meds Home Medications and Allergies Home Medications Medication Instructions Recorded Confirmed Type albuterol sulfate 90 mcg/actuation 2 puff inhalation Q6H PRN 06/11/22 06/11/22 History aerosol inhaler Shortness Of Breath lisinopril 5 mg tablet 5 mg PO DAILY High blood pressure 06/11/22 06/11/22 History New Prescriptions to Start Prescriptions: Allergies Allergy/AdvReac Type Severity Reaction Status Date / Time fenofibrate [FENOFIBRATE] Allergy Mild Verified 04/27/21 11:51 Qjsedti-EBB-XyY Reductase Allergy Mild Verified 04/27/21 11:51 Inhibitor [TRNVWRN-RWL-RAJ REDUCTASE INHIBITOR] Exam Data for Last 24 hours Vital signs and Labs for Last 24 Hours: Temp Pulse Resp BP Pulse Ox 98.3 F 104 H 16 134/79 98 06/11/22 04:15 06/11/22 04:15 06/11/22 04:15 06/11/22 04:15 06/11/22 03:30 Laboratory Results - last 24 hr 06/11/22 01:00: WBC 8.9, RBC 4.15 L, Hgb 13.8 L, Hct 43.0, MCV 103.7 H, MCH 33.3 H, MCHC 32.1, RDW 13.3, Plt Count 233, MPV 8.7, Neut % (Auto) 64.0, Lymph % (Auto) 27.2, [place] % (Auto) 5.9, Eos % (Auto) 1.8, Baso % (Auto) 1.1, Neut # (Auto) 5.7, Lymph # (Auto) 2.4, [place] # (Auto) 0.5, Eos # (Auto) 0.2, Baso # (Auto) 0.1 06/11/22 01:00: Sodium 129 L, Potassium 3.8, Chloride 94 L, Carbon Dioxide 26, Anion Gap 12.8, BUN 6 L, Creatinine 0.50 L, Estimated Creat Clear 50, Estimated GFR 165, Est GFR ( Amer) 200, Glucose 136 H, Calcium 8.2 L, Total Bilirubin 0.4, AST 107 H, ALT 101 H, Alkaline Phosphatase 113, Total Protein 7.3, Albumin 4.3, Globulin 3.0, Albumin/Globulin Ratio 1.4 06/11/22 01:00: Plasma/Serum Alcohol 249 H 06/11/22 01:00: Magnesium 1.8, Triglycerid
--- NOTE | 2022-06-11 06:05 | PC.NURSE ---
notified obed hidalgo of patient requesting nicotine patch
--- NOTE | 2022-06-11 06:15 | PC.NURSE ---
spoke with house regarding patients fluids ordered
--- NOTE | 2022-06-11 07:23 | HMH.PHAINT1 ---
Pharmacy Intervention Comments: Reconciled patient's home medications using pharmacy fill history and patient interview.
--- NOTE | 2022-06-11 10:54 | EXP.ORTH.CON ---
History of Present Illness *Admission Date: 06/11/22 *Reason for visit:: Left hip fracture *History of present illness: Mr. Tovar is a 67 year old male patient admitted to the acute inpatient service after sustaining a mechanical fall at home yesterday 06/10/2022. He has a past medical history of alcohol abuse and reports that he was drinking heavily yesterday evening, causing him to fall of his barstool and onto his left hip. He reports that he had immediate pain in his left hip and was unable to ambulate, so he was subsequently brought to the [facility] emergency department where xray demonstrated a left subcapital femoral neck fracture. This morning the patient is lying comfortably in bed and his son is present at the bedside. He continues to report left hip pain but states that it is well controlled with as needed pain medication and rest. No history of any distal tingling/numbness. He states that at baseline he lives in his own home and ambulates without the use of any walking aides. He is a chronic smoker and his past medical history is significant for alcohol abuse, hypertension, and asthma. He does not wear supplemental oxygen at home and denies taking any blood thinners; he reports that he occasionally takes 81 mg aspirin. He denies any other injuries, symptoms, or concerns at this time. . [facility] Disclaimer: The information contained in this section may have been updated after the patient was seen, as this information can be updated by other users. Medical History Asthma COPD (chronic obstructive pulmonary disease) History of transient ischemic attack (TIA) Hypertension Family History (Updated 06/11/22 @ 05:20 by Valerie White RN) Other No significant family history Social History (Updated 06/11/22 @ 05:22 by Valerie White RN) Smoking Status: Current every day smoker tobacco type: cigarettes packs per day: 1 alcohol intake: current substance use type: denies use current occupational status: retired Travel in the last 8 weeks: None household members: spouse housing: house marital status: Meds Home Medications and Allergies Home Medications Medication Instructions Recorded Confirmed Type albuterol sulfate 90 mcg/actuation 2 puff inhalation Q6H PRN 06/11/22 06/11/22 History aerosol inhaler Shortness Of Breath lisinopril 5 mg tablet 5 mg PO DAILY High blood pressure 06/11/22 06/11/22 History New Prescriptions to Start Prescriptions: Allergies Allergy/AdvReac Type Severity Reaction Status Date / Time fenofibrate [FENOFIBRATE] Allergy Mild Verified 04/27/21 11:51 Uszlgjc-TZS-YgN Reductase Allergy Mild Verified 04/27/21 11:51 Inhibitor [KKZIHZW-LQP-BPX REDUCTASE INHIBITOR] Ortho Exam (Inpt) Vital signs and Labs for Last 24 Hours: Temp Pulse Resp BP Pulse Ox 98.0 F 65 18 162/85 H 99 06/11/22 08:00 06/11/22 08:00 06/11/22 08:00 06/11/22 08:00 06/11/22 08:00 Laboratory Results - last 24 hr 06/11/22 01:00: WBC 8.9, RBC 4.15 L, Hgb 13.8 L, Hct 43.0, MCV 103.7 H, MCH 33.3 H, MCHC 32.1, RDW 13.3, Plt Count 233, MPV 8.7, Neut % (Auto) 64.0, Lymph % (Auto) 27.2, [place] % (Auto) 5.9, Eos % (Auto) 1.8, Baso % (Auto) 1.1, Neut # (Auto) 5.7, Lymph # (Auto) 2.4, [place] # (Auto) 0.5, Eos # (Auto) 0.2, Baso # (Auto) 0.1 06/11/22 01:00: Sodium 129 L, Potassium 3.8, Chloride 94 L, Carbon Dioxide 26, Anion Gap 12.8, BUN 6 L, Creatinine 0.50 L, Estimated Creat Clear 50, Estimated GFR 165, Est GFR ( Amer) 200, Glucose 136 H, Calcium 8.2 L, Total Bilirubin 0.4, AST 107 H, ALT 101 H, Alkaline Phosphatase 113, Total Protein 7.3, Albumin 4.3, Globulin 3.0, Albumin/Globulin Ratio 1.4 06/11/22 01:00: Plasma/Serum Alcohol 249 H 06/11/22 01:00: Magnesium 1.8, Triglycerides 87, Cholesterol 173, LDL Cholesterol Direct 46.60 L, VLDL Cholesterol 17, HDL Cholesterol 96 H, Cholesterol/HDL Ratio 1
--- NOTE | 2022-06-11 11:31 | PC.NURSE ---
pt fsbg 168
[2022-06-11 12:08] LABS: POC Glucose,Bedside 168 (70-110)
--- NOTE | 2022-06-11 18:39 | PC.NURSE ---
pt alert x4. CIWA score of 0/1 t/o shift. pt c/o pain at frequent intervals t/o shift, treated per may. no c/o n/v.pt has c/o of constant muscle spasms in the lt leg today. pt has been drowsy majority of this shift. npo after midnight for surgery at 1400 tomorrow. daughter and son have been at bedside. cb within reach. seizure pads and seizure precautions in place along with bed alarm for pt safety. pt nor family have any questions or concerns at this time.
[2022-06-12] VITALS (24 sets, daily range): BP systolic 85–188; BP diastolic 50–98; PULSE 71–101; RESP 10–20; TEMP 36.1–43; O2SAT 93–100; BMI 15.3
--- NOTE | 2022-06-12 03:58 | PC.NURSE ---
provider rocky andrews was notified of pt 02 sats 82% on room air and stated he felt like he cannot breath through his nose, noted raspy non productive cough, RT was called to give breathing treatment, noted pt with headache and ciwa 6 at this time, valium was given as prescribed, pt refuses to be moved and will not let staff adjust position in bed, afrin nasal spray was ordered per provider and given as directed, pt sats 93% on 2L pnc, humidification was ordered per RT. no acute distress noted.
--- NOTE | 2022-06-12 05:29 | PC.NURSE ---
pt with low o2 sats on room air 82%, pt with raspy cough, breathing tx ordered, pt refused to be moved in bed, ciwa check was 6 and valium was given, pt is alert and oriented x4, lung sounds diminished, telemetry reveals sinus tach, no acute distress, surgery today at 2pm.
[2022-06-12 06:55] LABS: Basophils # 0.1 K/mm3 (0-0.2); Basophils % 0.5 % (0.1-2.0); Eosinophils # 0.1 K/mm3 (0.0-0.4); Eosinophils % 0.6 % (0.1-12.0); Hematocrit 41.7 % (42.0-52.0); Hemoglobin 13.4 g/dL (14.1-18.0); Lymphocytes # 1.3 K/mm3 (0.7-4.5); Lymphocytes % 11.2 % (10-50); Mean Corpuscular HGB Conc 32.2 g/dL (31.8-35.4); Mean Corpuscular Hemoglobin 33.4 pg (27.0-31.2); Mean Corpuscular Volume 103.7 fl (80-94); Mean Platelet Volume 8.7 fl (7.4-10.4); Monocytes # 0.7 K/mm3 (0.1-1.0); Monocytes % 5.7 % (1.7-9.3); Neutrophils # 9.7 K/mm3 (1.8-7.8); Platelet Count 198 K/mm3 (142-424); Red Blood Count 4.02 M/mm3 (4.60-6.20); Red Cell Distribution Width 13.5 % (11.5-17.5); White Blood Count 11.9 K/mm3 (4.8-10.8)
[2022-06-12 07:09] LABS: Anion Gap 5.4 mEq/L (5-15); Blood Urea Nitrogen 7 mg/dl (9-20); Calcium 8.1 mg/dl (8.4-10.2); Carbon Dioxide 32 mmol/L (22.0-30.0); Chloride 95 mmol/L (98-107); Creatinine Clearance Estimated 51 mL/min (50-200); Estimated Glomerular Filt Rate 214 ml/min (>60); GFR (African American) 259 ML/MIN (>60); Glucose 106 mg/dl (74-100); Potassium 3.4 mmoL/L (3.5-5.1); Sodium 129 mmol/L (136-145)
--- NOTE | 2022-06-12 07:44 | PC.NURSE ---
note pt refused to have seizure pads on bed through the night, pt stated they were in his way and did not want them on there, explained to pt why they were needed and pt still refused to have them on bed through the night.
--- NOTE | 2022-06-12 11:18 | EXP.ORTH.PN ---
Subjective *Date: 06/12/22 *Time: 14:13 Interval history: Mr. Tovar is a 59-year-old male patient admitted to the acute inpatient service after sustaining a left subcapital femur fracture. This morning he is lying comfortably in bed and his son is present at the bedside. He continues to report left hip pain as to be expected but states it is well controlled with as needed pain medication and rest. No history of any distal tingling/numbness. He is n.p.o. for anticipated surgery this afternoon with Dr. Torrez. He denies any other symptoms or concerns at this time. Ortho Exam (Inpt) Vital signs and Labs for Last 24 Hours: Temp Pulse Resp BP Pulse Ox 98.1 F 83 17 143/77 H 98 06/12/22 11:11 06/12/22 11:11 06/12/22 11:11 06/12/22 11:11 06/12/22 11:11 Laboratory Results - last 24 hr 06/11/22 11:30: POC Glucose 168 H 06/12/22 06:28: WBC 11.9 H D, RBC 4.02 L, Hgb 13.4 L, Hct 41.7 L, MCV 103.7 H, MCH 33.4 H, MCHC 32.2, RDW 13.5, Plt Count 198, MPV 8.7, Neut % (Auto) 82.0 H, Lymph % (Auto) 11.2, [place] % (Auto) 5.7, Eos % (Auto) 0.6, Baso % (Auto) 0.5, Neut # (Auto) 9.7 H, Lymph # (Auto) 1.3, [place] # (Auto) 0.7, Eos # (Auto) 0.1, Baso # (Auto) 0.1 06/12/22 06:28: Sodium 129 L, Potassium 3.4 L, Chloride 95 L, Carbon Dioxide 32 H, Anion Gap 5.4, BUN 7 L, Creatinine 0.40 L, Estimated Creat Clear 51, Estimated GFR 214, Est GFR ( Amer) 259 D, Glucose 106 H, Calcium 8.1 L Temp Pulse Resp BP Pulse Ox 98.0 F 65 18 162/85 H 99 06/11/22 08:00 06/11/22 08:00 06/11/22 08:00 06/11/22 08:00 06/11/22 08:00 Laboratory Results - last 24 hr 06/11/22 01:00: WBC 8.9, RBC 4.15 L, Hgb 13.8 L, Hct 43.0, MCV 103.7 H, MCH 33.3 H, MCHC 32.1, RDW 13.3, Plt Count 233, MPV 8.7, Neut % (Auto) 64.0, Lymph % (Auto) 27.2, [place] % (Auto) 5.9, Eos % (Auto) 1.8, Baso % (Auto) 1.1, Neut # (Auto) 5.7, Lymph # (Auto) 2.4, [place] # (Auto) 0.5, Eos # (Auto) 0.2, Baso # (Auto) 0.1 06/11/22 01:00: Sodium 129 L, Potassium 3.8, Chloride 94 L, Carbon Dioxide 26, Anion Gap 12.8, BUN 6 L, Creatinine 0.50 L, Estimated Creat Clear 50, Estimated GFR 165, Est GFR ( Amer) 200, Glucose 136 H, Calcium 8.2 L, Total Bilirubin 0.4, AST 107 H, ALT 101 H, Alkaline Phosphatase 113, Total Protein 7.3, Albumin 4.3, Globulin 3.0, Albumin/Globulin Ratio 1.4 06/11/22 01:00: Plasma/Serum Alcohol 249 H 06/11/22 01:00: Magnesium 1.8, Triglycerides 87, Cholesterol 173, LDL Cholesterol Direct 46.60 L, VLDL Cholesterol 17, HDL Cholesterol 96 H, Cholesterol/HDL Ratio 1.8 06/11/22 01:00: PT 10.1, INR 0.93, APTT 26.2 06/11/22 01:00: Phosphorus 4.0 06/11/22 01:50: SARS-CoV-2 (PCR) Not detected, Influenza A Untype (PCR) Not detected, Influenza Type B (PCR) Not detected I & O for Labs for Last 24 Hours: Intake & Output 06/09/22 06/10/22 06/11/22 06/12/22 23:59 23:59 23:59 23:59 Intake Total 720 / 920 200 / 200 Output Total 1300 / 1300 750 / 750 Balance -580 / -380 -550 / -550 Weight 112 lb 3 oz 113 lb 8 oz Intake & Output 06/08/22 06/09/22 06/10/22 06/11/22 23:59 23:59 23:59 23:59 Output Total 400 / 400 Balance -400 / -400 Weight 112 lb 3 oz Constitutional: Present no acute distress and cooperative Head: Present normocephalic and atraumatic Eyes: Present as per HPI ENT: Present normal exam Neck: Present normal inspection, full ROM and trachea midline; Absent lymphadenopathy Respiratory: Present normal respiratory effort, able to speak in complete sentences and symmetric chest movement; Absent accessory muscle use or respiratory distress Cardiac: Present Reg Rate and Rhythm and radial pulses present GI: Present soft; Absent tenderness Rectal (male): Present deferred (male): Present deferred Comment:: Upon examination of the lower extremities: The left leg is shortened and externally rotated. Skin present over the left hip is intact. The left hip and proximal femur are tender to palpation. Attempted movements of the left hip are painful. Thigh
--- NOTE | 2022-06-12 13:16 | EXP.ACUTE.PN ---
Subjective *Date: 06/12/22 *Time: 15:08 Interval history: Patient stable on 2 L nasal cannula oxygen. Denies nausea or vomiting. Still having some withdrawal symptoms, increased tremors overnight. Afebrile. Cramping in left leg but stable as long as he does not move. Withdrawal symptoms responding to scheduled oxazepam and as needed Valium. Medical Exam Vital signs and Labs for Last 24 Hours: Vital Signs Temp Pulse Pulse Resp BP Pulse Ox 06/12/22 11:11 98.1 F 83 17 143/77 H 98 06/12/22 07:45 97.5 F L 88 17 123/81 97 06/12/22 04:00 95 H 06/12/22 04:00 97.5 F L 101 H 20 188/98 H 96 06/12/22 00:00 80 06/11/22 20:00 110 H 06/11/22 23:55 94 L 06/12/22 00:00 98.1 F 92 H 20 155/91 H 93 L 06/11/22 20:00 109 H 95 06/11/22 20:00 98.2 F 109 H 20 130/70 95 06/11/22 16:00 83 06/11/22 16:00 97.8 F 85 18 130/92 H 95 Intake and Output 06/11/22 06/12/22 06/12/22 23:59 07:59 15:59 Intake Total 240 / 920 200 / 200 Output Total 900 / 1300 300 / 950 650 / 950 Balance -660 / -380 -100 / -750 -650 / -750 Intake: Intake, Oral Amount 240 / 920 200 / 200 Output: Output, Urine Amount 900 / 1300 300 / 950 650 / 950 Other: Number of Unmeasured Voids 0 0 0 Weight 51.483 kg Patient Weight 06/12/22 23:59 Weight 51.483 kg Laboratory Results - last 24 hr 06/12/22 06:28: WBC 11.9 H D, RBC 4.02 L, Hgb 13.4 L, Hct 41.7 L, MCV 103.7 H, MCH 33.4 H, MCHC 32.2, RDW 13.5, Plt Count 198, MPV 8.7, Neut % (Auto) 82.0 H, Lymph % (Auto) 11.2, [place] % (Auto) 5.7, Eos % (Auto) 0.6, Baso % (Auto) 0.5, Neut # (Auto) 9.7 H, Lymph # (Auto) 1.3, [place] # (Auto) 0.7, Eos # (Auto) 0.1, Baso # (Auto) 0.1 06/12/22 06:28: Sodium 129 L, Potassium 3.4 L, Chloride 95 L, Carbon Dioxide 32 H, Anion Gap 5.4, BUN 7 L, Creatinine 0.40 L, Estimated Creat Clear 51, Estimated GFR 214, Est GFR ( Amer) 259 D, Glucose 106 H, Calcium 8.1 L 06/12/22 09:02: Blood Type AB Positive, Antibody Screen Negative I & O for Labs for Last 24 Hours: Intake & Output 06/09/22 06/10/22 06/11/22 06/12/22 23:59 23:59 23:59 23:59 Intake Total 720 / 920 200 / 200 Output Total 1300 / 1300 950 / 950 Balance -580 / -380 -750 / -750 Weight 50.887 kg 51.483 kg Constitutional: Present no acute distress, thin and chronically ill appearing Head: Present atraumatic and normocephalic ENT: Present normal exam Neck: Present normal inspection Respiratory: Present normal respiratory effort; Absent accessory muscle use, rhonchi, wheezes or crackles Cardiac: Present Reg Rate and Rhythm GI: Present soft and normal bowel sounds; Absent distention or tenderness Extremities: Present normal inspection; Absent edema Comment:: left leg externally rotated and shortened. Neurovascularly intact in his feet. Able to wiggle toes Skin: Present intact; Absent erythema Neuro: Present Grossly Intact, alert, awake, oriented x 3 and moves all extremities Comment:: Tremor Assessment and Plan *Assessment and plan (1) Closed hip fracture: Status: Acute Category: Medical Code(s): S72.009A - Fracture of unspecified part of neck of unspecified femur, initial encounter for closed fracture (2) Alcohol intoxication: Status: Acute Category: Medical Code(s): F10.929 - Alcohol use, unspecified with intoxication, unspecified (3) Moderate protein-calorie malnutrition: Status: Acute Category: Medical Code(s): E44.0 - Moderate protein-calorie malnutrition Plan 67-year-old male with history of alcohol abuse, sustained left femoral neck fracture. Orthopedics consulted. Going for surgery today. Continuing CIWA protocol and monitoring for alcohol withdrawal symptoms. Tolerating scheduled medical therapy for alcohol withdrawal. Problems addressed as follows: Closed left hip fracture Femoral head fracture noted on hip CT Discussed case with orthopedicsdonovan
--- NOTE | 2022-06-12 13:35 | PC.NURSE ---
Pt. to surgery department.
--- NOTE | 2022-06-12 14:57 | EXP.ANES.CKL ---
[facility] Disclaimer: The information contained in this section may have been updated after the patient was seen, as this information can be updated by other users. Medical History Asthma COPD (chronic obstructive pulmonary disease) History of transient ischemic attack (TIA) Hypertension Family History (Updated 06/11/22 @ 05:20 by Valerie White RN) Other No significant family history Social History (Updated 06/11/22 @ 05:22 by Valerie White RN) Smoking Status: Current every day smoker tobacco type: cigarettes packs per day: 1 alcohol intake: current substance use type: denies use current occupational status: retired Travel in the last 8 weeks: None household members: spouse housing: house marital status: [facility] Anesthesia Checklist Patient Identification Patient Identification: Arm Band and Verbal (Name & ) Structural Data Admitted From: Inpatient Planned Operative Procedure/s: Left HemiArthroplasty Consent for Planned Operative Procedure(s) Verified: Yes Verified Documents: Surgical Consent NPO Status Verified Time NPO: 00:00 Chart Verification Results Verified: CBC and BMP Airway Assessment C-Spine Mobility Assessed: Yes TMJ Mobility Assessed: Yes Neurological Assessment Level of Consciousness: Awake, Alert and Appropriate Anesthesia Plan Anesthesia Risk discussed: Yes ASA Class: III Anesthesia Type: MAC
--- NOTE | 2022-06-12 15:46 | EXP.ANES.I ---
[facility] Anesthesia Record Part I Anesthesia Record I Intake, IV Amount: 600 Estimated blood loss (mL): 50 Urine output (mL): 1,000 Blood Pressure: 85/50 SaO2: 96 Pulse Rate: 74 Respiratory Rate: 10 Temperature: 97 F Patient is:: Drowsy and Stable Stable to PACU at:: 15:53
--- NOTE | 2022-06-12 16:23 | EXP.OP.NOTE ---
Date of procedure: 06/12/22 Pre-op Diagnosis:: Left femoral neck fracture Post-op Diagnosis:: Same Procedure performed:: 60453: Left hip hemiarthroplasty Surgeon:: Andriy Torrez JR, MD Apparatus Engineering Technologist(s):: Emilia Saldaña PA-C FILLING TECHNICIAN:: Aamir Dimas Anesthesia: spinal Estimated blood loss (mL): 30 Clinical Note:: 67-year-old male fell off of a barstool, sustained left femoral neck fracture. He has alcoholism, was admitted to the hospital, cleared for surgery. I had a discussion with he and his family regarding further management, recommended left hip hemiarthroplasty. He and the family were amenable with the plan. We discussed the risk and benefits of surgery. Risks included but were not limited to pain, bleeding, infection, damage to adjacent structures, need for further surgery, wound healing complications, loss of limb, . Patient expressed verbal consent and written consent was obtained for the above procedure. Operative findings:: Hip was stable through range of motion, leg lengths grossly symmetric, no periprosthetic fracture noted. Operative note:: Patient was identified in preoperative holding. Operative site was marked in indelible ink. History, physical, consent were reviewed and updated. Patient was surrendered to the anesthesia team, taken to the operative suite. Anesthesia was induced. Patient was then placed in the lateral decubitus position on a well-padded operative table. All bony prominences were padded and an axillary roll was placed. The operative extremity was prepped and draped in the usual sterile fashion. The operative team donned sterile gowns and gloves and a timeout was called. All in attendance agreed regarding the patient's identity, procedure, operative site. Weight-based dose of antibiotics was given prior to incision. A skin maker was then used to latoya all bony prominences. Skin incision was then carried out extending from the greater trochanter in a curvilinear fashion posteriorly across the buttocks. I incised the skin with a scalpel, then using a Bovie dissected through tissues. The fascia sujatha was incised utilizing Metzenbaum scissors. This was taken down to the bursa, which was removed utilizing a rongeur. Utilizing a periosteal elevator as well as the sponge, the fat was then freed from the short external rotators of the left hip after these were placed and stretched. The sciatic nerve was protected. Bovie was used to remove the short external rotators from the greater trochanter, which revealed the joint capsule. His were tagged for later repair. The capsule was cleared and incised utilizing a T-shape incision. A fracture hematoma was noted upon entering the joint capsule as well as the femoral neck fracture. A cork screw was then used to remove the fractured femoral head, which was given to the test cell technician which was sized on the back table. All bony remnants were then removed from the acetabulum and surrounding soft tissue with a rongeur. Acetabulum was then inspected and found to be clear. Attention was then turned to the proximal femur where a cutting tunnel was used to latoya the femur for the femoral neck cut. A sagittal saw was then used to make the femoral cut. Box osteotome was then used to remove the bone from proximal femur. A femoral neck elevator was utilized. Next, attention was turned to broaching. Initially, a small broach was placed, first making efforts to lateralize the broach then the femoral canal. Next, the trial components were inserted consisting of the above-mentioned component sizes. The hip was taken through range of motion and tested to adduction, internal and external rotations as well as with a shuck and a posterior directed force on a flexed hip. It was noted that these size were stable through the range of motion. Next, the trial components were removed and the femoral canal was copiously irrigated and suctioned dry. The femoral component was then inserted. The bipolar head was appli
--- NOTE | 2022-06-12 16:23 | SUR.PHASEI ---
Report called to JoseM anuel Dunham RN @ this time. Unable to transport pt at this time d/t staffing. Will transport pt to floor when able. Pt currently resting in bed. Denies pain. LLE pink, cap refill <3 sec. VSS. Call yeny w/in reach. Bed in lowest locked position.
--- NOTE | 2022-06-12 16:25 | XR_ITS ---
PROCEDURE INFORMATION: Exam: XR Left Hip Exam date and time: 06/12/2022 9:18 PM Age: 67 years old Clinical indication: Screening exam; Post op; Prior surgery; Additional info: Status post left hip sivakumar TECHNIQUE: Imaging protocol: Radiologic exam of the left hip. Views: 2 or 3 views hip with pelvis when performed. COMPARISON: CT HIP LT WO CON 06/11/2022 1:47 AM FINDINGS: Bones/joints: Left hip prosthesis has been inserted in anatomic position. No evidence of periprosthetic fracture. Degenerative change noted in the lumbar spine with diffuse sclerosis. Soft tissues: Expected regional soft tissue distortion noted. IMPRESSION: Expected postoperative appearance of left hip prosthesis.
[2022-06-13] VITALS: BP 142/74; PULSE 91; RESP 16; TEMP 36.9; O2SAT 96
[2022-06-13 00:55] LABS: Microscopic,Cath URINE MICROSCOPIC (MICROSCOPIC)
--- NOTE | 2022-06-13 01:17 | PC.NURSE ---
Just gave patient a pain pill and and tried to educate again on the need to turn. He refused.
[2022-06-13 01:38] LABS: Appearance,Urine/Cath CLEAR (Clear); Bilirubin,Cath Negative (Negative); Blood, Urine/Cath Negative (Negative); Color,Urine/Cath YELLOW (Yellow); Glucose,Urine/Cath (UA) Negative (Negative); Ketones,Urine/Cath Negative (Negative); Leukocyte Esterase,Cath Negative (Negative); Nitrate,Cath Negative (Negative); PH,Urine/Cath 7.5 (5.0-8.5); Protein,Urine/Cath Negative (Negative); Urobilinogen,Cath 0.2 EU/dl (0.2)
[2022-06-13 01:39] LABS: Bacteria,Urine/Cath TRACE /lpf; RBC,Urine/Cath Occasional # /hpf (0-3); WBC,Urine/Cath Occasional #/hpf (0-3)
--- NOTE | 2022-06-13 02:08 | EXP.ORTH.PN ---
Subjective *Date: 06/13/22 *Time: 02:08 Ortho Exam (Inpt) Vital signs and Labs for Last 24 Hours: Temp Pulse Resp BP Pulse Ox FiO2 98.4 F 91 H 16 142/74 H 96 100 06/13/22 00:00 06/13/22 00:00 06/13/22 00:00 06/13/22 00:00 06/13/22 00:00 06/12/22 19:40 Laboratory Results - last 24 hr 06/12/22 06:28: WBC 11.9 H D, RBC 4.02 L, Hgb 13.4 L, Hct 41.7 L, MCV 103.7 H, MCH 33.4 H, MCHC 32.2, RDW 13.5, Plt Count 198, MPV 8.7, Neut % (Auto) 82.0 H, Lymph % (Auto) 11.2, [place] % (Auto) 5.7, Eos % (Auto) 0.6, Baso % (Auto) 0.5, Neut # (Auto) 9.7 H, Lymph # (Auto) 1.3, [place] # (Auto) 0.7, Eos # (Auto) 0.1, Baso # (Auto) 0.1 06/12/22 06:28: Sodium 129 L, Potassium 3.4 L, Chloride 95 L, Carbon Dioxide 32 H, Anion Gap 5.4, BUN 7 L, Creatinine 0.40 L, Estimated Creat Clear 51, Estimated GFR 214, Est GFR ( Amer) 259 D, Glucose 106 H, Calcium 8.1 L 06/12/22 09:02: Blood Type AB Positive, Antibody Screen Negative 06/12/22 14:20: Urine Color Yellow, Urine Appearance Clear, Urine pH 7.5, Ur Specific [place] 1.010, Urine Protein Negative, Urine Glucose (UA) Negative, Urine Ketones Negative, Urine Blood Negative, Urine Nitrate Negative, Urine Bilirubin Negative, Urine Urobilinogen 0.2, Ur Leukocyte Esterase Negative, Urine RBC Occasional, Urine WBC Occasional, Urine Bacteria Trace I & O for Labs for Last 24 Hours: Intake & Output 06/10/22 06/11/22 06/12/22 06/13/22 23:59 23:59 23:59 23:59 Intake Total 720 / 920 970 / 970 Output Total 1300 / 1300 2200 / 2200 Balance -580 / -380 -1230 / -1230 Weight 112 lb 3 oz 113 lb 7.903 oz Head: Present normocephalic and atraumatic ENT: Present mucous membranes moist Neck: Present normal inspection Respiratory: Present normal respiratory effort and symmetric chest movement; Absent accessory muscle use or respiratory distress Cardiac: Present Reg Rate and Rhythm and radial pulses present GI: Present soft; Absent distention Additional Findings:: Left lower extremity: Dressing clean, dry, intact. Leg lengths grossly symmetric, grossly distally neurovascularly intact. Assessment and Plan *Assessment and plan (1) Closed hip fracture: Status: Acute Category: Medical Code(s): S72.009A - Fracture of unspecified part of neck of unspecified femur, initial encounter for closed fracture Plan 67-year-old male status post left hip hemiarthroplasty. Weightbearing as tolerated left lower extremity, posterior hip precautions. PT/OT. 23 hours antibiotics. DVT chemoprophylaxis for 5 weeks. Follow-up 2 weeks for wound check and x-rays.
[2022-06-13 04:00] VITALS: BP 134/85; PULSE 100; RESP 18; TEMP 37.1; O2SAT 97; BMI 15.3
--- NOTE | 2022-06-13 04:01 | PC.NURSE ---
Pt. has gotten a pain pill once on my shift. His CIWA has been negative times three for my shift.
--- NOTE | 2022-06-13 07:14 | P.PNANES_ITS ---
[facility] Anesthesia Record Part II Anesthesia Record Part II Discharge Time: 16:23 Destination: Medical Surgical Department PACU nurse assessment reviewed?: Yes Patient Condition:: Good Anesthesia Complications:: None Swallowing reflex intact?: Yes Cyanosis?: No Blood Pressure: 132/70 Pulse Rate: 71 Temperature: 98.1 F Mental Status: Alert & Oriented Pain level:: 0 Nausea and/or vomitting:: None Intake, IV Amount: 0
[2022-06-13 07:15] VITALS: BP 132/70; PULSE 71; TEMP 36.7
[2022-06-13 07:31] LABS: Basophils % 0.3 % (0.1-2.0); Eosinophils # 0.2 K/mm3 (0.0-0.4); Eosinophils % 1.8 % (0.1-12.0); Hematocrit 38.1 % (42.0-52.0); Hemoglobin 11.9 g/dL (14.1-18.0); Lymphocytes # 1.3 K/mm3 (0.7-4.5); Lymphocytes % 12.8 % (10-50); Mean Corpuscular HGB Conc 31.3 g/dL (31.8-35.4); Mean Corpuscular Hemoglobin 33.4 pg (27.0-31.2); Mean Corpuscular Volume 106.5 fl (80-94); Mean Platelet Volume 8.8 fl (7.4-10.4); Monocytes # 0.7 K/mm3 (0.1-1.0); Neutrophils # 7.9 K/mm3 (1.8-7.8); Neutrophils % 78.1 % (37.0-80.0); Platelet Count 155 K/mm3 (142-424); Red Blood Count 3.57 M/mm3 (4.60-6.20); Red Cell Distribution Width 13.4 % (11.5-17.5); White Blood Count 10.1 K/mm3 (4.8-10.8)
[2022-06-13 07:39] LABS: Alanine Aminotransferase 49 U/L (12-78); Albumin Level 3.1 g/dl (3.5-5.0); Albumin/Globulin Ratio 1.2 (1.1-1.8); Alkaline Phosphatase 87 U/L (38-126); Anion Gap 3.6 mEq/L (5-15); Aspartate Amino Transferase 49 U/L (17-59); Bilirubin,Total 0.5 mg/dl (0.2-1.3); Blood Urea Nitrogen 7 mg/dl (9-20); Calcium 7.5 mg/dl (8.4-10.2); Carbon Dioxide 33 mmol/L (22.0-30.0); Chloride 95 mmol/L (98-107); Creatinine Clearance Estimated 51 mL/min (50-200); Estimated Glomerular Filt Rate 165 ml/min (>60); GFR (African American) 200 ML/MIN (>60); Globulin 2.5 g/dL (1.3-3.2); Glucose 104 mg/dl (74-100); Magnesium 2.1 mg/dl (1.6-2.3); Phosphorous 3.2 mg/dl (2.5-4.5); Potassium 3.6 mmoL/L (3.5-5.1); Sodium 128 mmol/L (136-145); Total Protein,Serum 5.6 g/dl (6.3-8.2)
[2022-06-13 08:00] VITALS: BP 124/80; PULSE 116; RESP 18; TEMP 37; O2SAT 90
--- NOTE | 2022-06-13 10:53 | HMH.PTEV ---
Physical Therapy Evaluation Rehab PT IP Evaluation Start: 06/12/22 15:12 Freq: ONCE Status: Active Protocol: Document 06/13/22 09:15 PHORNE (Rec: 06/13/22 10:53 PHORNE [id number]) Subjective/History History History 67 yowm adm to [facility] S/P fall brom a bar stool with resulting L hip fx, now S/P L hip RICHARDSON. He has hx of EtOH abuse at baseline, lives alone , 2 steps to enter the home and is generally independent with all mobility without AD. Subjective Subjective He reports expected post-op pain in the L LE, but agrees to mobility assessment. Pt was informed of post hip prec and voiced understanding. Rehab PT IP Eval Objective Appearance Patient Behavior Appropriate Patient Orientation Person,Place,Time Difficulty following instructions none Speech Pattern Clear Ambulation Patient Able to Ambulate Yes Ambulation Observation IP General Gait Pattern Observation Antalgic Gait,Decrease Stride Lngth (R),Decrease Stride Lngth (L) Ambulation Distance (feet) 20 Ambulation Assistive Device Rolling Walker Ambulation Ability Contact Guard/Hand Hold Balance Ability to Arise Able, uses arms to help Sitting Balance Steady, safe Standing Balance Steady, wide stance Dynamic Sitting Balance Ability Good Dynamic Standing Balance Ability Fair Transfers Bed Transfer Ability Contact Guard/Hand Hold Chair Transfer Ability Contact Guard/Hand Hold Sit to Stand Bed Transfer Ability Contact Guard/Hand Hold Sit to Stand Chair Transfer Ability Contact Guard/Hand Hold Rehab PT IP prob,goals,plan Problems Date of Evaluation: 06/13/22 PT IP Problems Bed Mobility,Transfers,Gait Rehab Potential Rehab Potential Good Plan PT Intervention Plan Bed Mobility,Transfers,Gait, Therapeutic Exercise PT Plan Frequency BID Duration LOS Discharge Goals Bed Transfer Ability Supervision/Stand by Sit to Stand Chair Transfer Ability Supervision/Stand by Ambulation Assistive Device Rolling Walker Ambulation Distance (feet) 30 Discharge Plan PT Discharge Plan Pt is currently most appropriate for short term rehab placement, but could return home if assistance is
--- NOTE | 2022-06-13 11:05 | EXP.DC.SUM ---
General Admission date:: 06/11/22 Discharge date: 06/13/22 HPI HPI HPI: Mr. Tovar is a 67 year old male patient admitted to the acute inpatient service after sustaining a mechanical fall at home yesterday 06/10/2022. He has a past medical history of alcohol abuse and reports that he was drinking heavily yesterday evening, causing him to fall of his barstool and onto his left hip. He reports that he had immediate pain in his left hip and was unable to ambulate, so he was subsequently brought to the [facility] emergency department where xray demonstrated a left subcapital femoral neck fracture. This morning the patient is lying comfortably in bed and his son is present at the bedside. He continues to report left hip pain but states that it is well controlled with as needed pain medication and rest. No history of any distal tingling/numbness. He states that at baseline he lives in his own home and ambulates without the use of any walking aides. He is a chronic smoker and his past medical history is significant for alcohol abuse, hypertension, and asthma. He does not wear supplemental oxygen at home and denies taking any blood thinners; he reports that he occasionally takes 81 mg aspirin. He denies any other injuries, symptoms, or concerns at this time. . Hospital Course Hospital Course Hospital Course: 67-year-old male with history of alcohol abuse, sustained left femoral neck fracture.? Orthopedics consulted.? Taken for surgery 06/12. Monitored on CIWA protocol for alcohol withdrawal during hospitalization. Treated with scheduled oxazepam and gabapentin. Symptoms controlled. Symptoms remain mild with CIWA scores less than 10 during hospitalization. Problems addressed during hospitalization as follows: Closed left hip fracture Femoral head fracture noted on hip CT. orthopedics was consulted. Patient medically stable for surgery. Taken for surgery on 06/12. Tolerated procedure well with no complication. Recommend initiating Xarelto 10 mg daily for DVT prophylaxis at discharge. Complete 5 weeks total of anticoagulation. PT and OT evaluated during admission. Stable for discharge home with family with home health PT. Pain tolerable during hospitalization with as needed oxycodone. Patient is intolerant of Tylenol. Discharged with 3 days of oxycodone. Close follow-up with orthopedics in 2 weeks. Alcohol intoxication And abuse Initiated on CIWA scoring at admission. Started on scheduled oxazepam and gabapentin. Tolerated well with mild symptoms. We will continue gabapentin at discharge for 1 more week. Strongly encouraged cessation. Additionally treated with rally pack and vitamins per withdrawal protocol. Recommend continuing multivitamin daily. No seizure activity during hospitalization. Discussed with patient that his intoxication was a direct culprit in his fracture. He is also quite thinAnd has malnutrition secondary to his alcohol abuse. Patient stated understanding. Strongly encouraged to avoid alcohol in the future. Interested in daily medication to decrease risk for drinking, would benefit from further discussion with PCP as this generally needs monitoring. Stable for discharge home. Follow-up with PCP in 1 to 2 weeks. Follow-up with orthopedics in 2 weeks. HH referral placed for PT/OT, shelter. Exam Data for Last 24 hours Vital signs and Labs for Last 24 Hours: Temp Pulse Resp BP Pulse Ox FiO2 98.6 F 116 H 18 124/80 90 L 100 06/13/22 08:00 06/13/22 08:00 06/13/22 08:00 06/13/22 08:00 06/13/22 08:00 06/12/22 19:40 Laboratory Results - last 24 hr 06/12/22 09:02: Blood Type AB Positive, Antibody Screen Negative 06/12/22 14:20: Urine Color Yellow, Urine Appearance Clear, Urine pH 7.5, Ur Specific [place] 1.010, Urine Protein Negative, Urine Glucose (UA) Negative, Urine Ketones Negative, Urine Blood Negative, Urine Nitrate Negative, Urine Bilirubin Negative, Urine Urobilinogen 0.2, Ur Leukocyte
--- NOTE | 2022-06-13 11:24 | HMH.OTEV ---
OT Inpatient Evaluation Rehab OT IP Evaluation Start: 06/12/22 15:12 Freq: ONCE Status: Active Protocol: Document 06/13/22 11:03 MARICRUZJEANETTE (Rec: 06/13/22 11:22 VITOHEMA [id number]) Rehab OT IP Assessment Subjective History 67-year-old male fell off of a barstool, sustained left femoral neck fracture. He has alcoholism, was admitted to the hospital, cleared for surgery. I had a discussion with he and his family regarding further management, recommended left hip hemiarthroplasty. He and the family were amenable with the plan. We discussed the risk and benefits of surgery. Risks included but were not limited to pain, bleeding, infection, damage to adjacent structures, need for further surgery, wound healing complications, loss of limb, . Patient expressed verbal consent and written consent was obtained for the above procedure. Patient lives alone with being independent with ADLs and fx' l mobility prior to surgery. Subjective I can get up. Instructed Patient on proper hand and foot placement to complete supine->sit @ EOB requiring Mod A. Instructed Patient on SPT from EOB-> recliner with Min A. Patient stated that he will have family with him while at home to assist as needed. Recommend RW to be sent home with fx'l mobility. Objective Patient Orientation Person,Place,Name,Year Upper Extremity Gross ROM WFL Bed Mobility bed mobility - supine/sit Assist Level Moderate x 1 (50% assist) Transfer Training Sit/Stand/Pivot Transfer Assist Level Moderate x 1 (50% assist) Chair Transfer Ability Moderate x 1 (50% assist) Chair Transfer Technique Sit to/from Ambulatory Chair Transfer Assistive Devices Rolling Walker Lower Body
[2022-06-13 12:00] VITALS: BP 144/69; PULSE 117; RESP 16; TEMP 36.6; O2SAT 90
--- NOTE | 2022-06-13 13:50 | CARE MANAGER ---
Addendum entered by Lady Sykes RN 06/13/22 16:05: Patient also had information sent to [facility] for [facility]. Patient did not qualify for under insurance but told them about rental option. Patient requires home health therapy. Patient's information has been sent to [facility], [facility], [facility], [facility], and [facility]. None of these agencies can accept patient. Information was then sent to [facility], [facility] and [facility]. Awaiting to hear if they will accept. Ninfa from [facility] says they could possibly accept and start PT next week. We will wait until we hear from the other 2 agencies left. These are all the agencies that service [facility]. LEO Kumari Original Note: Patient's daughter called and stated he will need wheelchair. Sent information to [facility]. LEO Kumari
== END 2022-06-13 12:58 | disposition home health service (06) | DRG 522 ==
LOC: ER 03:48 → 2ND 03:54
PROVIDERS: Internal Medicine Adolescent Medicine; Nurse Practitioner Acute Care; Orthopaedic Surgery; Admitting Provider Student in an Organized Health Care Education/Training Program; Emergency Provider Emergency Medicine; PCP Family Medicine; Visit Provider Student in an Organized Health Care Education/Training Program
PROC: 0SRS03A Replacement of Left Hip Joint, Femoral Surface with Ceramic Synthetic Substitute, Uncemented, Open Approach (ICD-10-PCS; principal; 2022-06-12 14:00)
DX: S72.012A Unspecified intracapsular fracture of left femur, initial encounter for closed fracture (principal); E44.0 Moderate protein-calorie malnutrition; Z68.1 Body mass index [BMI] 19.9 or less, adult; F10.929 Alcohol use, unspecified with intoxication, unspecified; Y90.8 Blood alcohol level of 240 mg/100 ml or more; F17.210 Nicotine dependence, cigarettes, uncomplicated; W07.XXXA Fall from chair, initial encounter; Y92.018 Other place in single-family (private) house as the place of occurrence of the external cause; J44.9 Chronic obstructive pulmonary disease, unspecified; I10 Essential (primary) hypertension; Z86.73 Personal history of transient ischemic attack (TIA), and cerebral infarction without residual deficits
CPT/HCPCS: 27236; 36415; 70450; 71045; 72125; 73502; 73700; 80048; 80053; 80061; 81001; 82962; 83735; 84100; 85025; 85610; 85730; 86850; 93005; 94640; 94760; 94761; 97162; 97165; 99285; C1776; C9803; J0131; J0697; J3370; U0003; U0005

== ENCOUNTER 2023-05-02 21:54 | Outpatient (CLI) | payer MEDICARE, SELFPAY ==
[2023-05-02 18:49] LABS: Basophils # 0.1 K/mm3 (0-0.2); Basophils % 0.4 % (0.1-2.0); Eosinophils # 0.2 K/mm3 (0.0-0.4); Eosinophils % 1.7 % (0.1-12.0); Hematocrit 46.7 % (42.0-52.0); Hemoglobin 15.7 g/dL (14.1-18.0); Lymphocytes # 2.9 K/mm3 (0.7-4.5); Lymphocytes % 24.5 % (10-50); Mean Corpuscular HGB Conc 33.7 g/dL (31.8-35.4); Mean Corpuscular Hemoglobin 34.5 pg (27.0-31.2); Mean Corpuscular Volume 102.3 fl (80-94); Monocytes % 8.8 % (1.7-9.3); Neutrophils # 7.6 K/mm3 (1.8-7.8); Neutrophils % 64.6 % (37.0-80.0); Platelet Count 343 K/mm3 (142-424); Red Blood Count 4.56 M/mm3 (4.60-6.20); White Blood Count 11.8 K/mm3 (4.8-10.8)
[2023-05-02 19:26] LABS: Hemoglobin A1C 5.3 % (4.0-6.0)
[2023-05-02 19:27] LABS: Alanine Aminotransferase 26 U/L (12-78); Albumin Level 4.7 g/dl (3.5-5.0); Albumin/Globulin Ratio 1.5 (1.1-1.8); Alkaline Phosphatase 117 U/L (38-126); Amylase 43 U/L (30-110); Anion Gap 14.3 mEq/L (5-15); Aspartate Amino Transferase 41 U/L (17-59); Bilirubin,Total 0.4 mg/dl (0.2-1.3); Blood Urea Nitrogen 8 mg/dl (9-20); Calcium 9.8 mg/dl (8.4-10.2); Carbon Dioxide 25 mmol/L (22.0-30.0); Chloride 98 mmol/L (98-107); Chol/HDL Ratio 2.1 (1-3.5); Cholesterol 216 mg/dl (140-200); Estimated Glomerular Filt Rate 134 ml/min (>60); GFR (African American) 162 ML/MIN (>60); Globulin 3.1 g/dL (1.3-3.2); Glucose 65 mg/dl (74-100); HDL Cholesterol 104 mg/dl (40-60); Lipase 92 U/L (23-300); Potassium 4.3 mmoL/L (3.5-5.1); Sodium 133 mmol/L (136-145); Total Protein,Serum 7.8 g/dl (6.3-8.2); Triglycerides 83 mg/dl (30-150); VLDL Cholesterol 17 mg/dL (0-40)
[2023-05-02 19:38] LABS: Direct LDL Cholesterol 87.89 mg/dL (100-129)
[2023-05-02 19:46] LABS: 25-OH Vitamin D, Total 79.7 ng/mL (30-100)
[2023-05-02 20:01] LABS: Thyroid Stimulating Hormone 0.56 uIU/mL (0.465-4.68)
[2023-05-02 20:36] LABS: Vitamin B12 830 pg/mL (239-931)
[2023-05-02 20:39] LABS: Folate > 20.00 ng/mL
[2023-05-02 21:14] LABS: Iron 94 ug/dL (49-181)
[2023-05-02 21:25] LABS: Total Iron Binding Capacity 321 ug/dL (261-462)
[2023-05-02 21:51] LABS: Ferritin 104 ng/ml (17.9-464)
== END 2023-05-02 23:59 ==
LOC: LAB.DROPOF 21:55
PROVIDERS: PCP Family Medicine; Visit Provider Family Medicine
DX: F10.10 Alcohol abuse, uncomplicated (principal); E78.5 Hyperlipidemia, unspecified; Z12.5 Encounter for screening for malignant neoplasm of prostate; E07.9 Disorder of thyroid, unspecified; E55.9 Vitamin D deficiency, unspecified; E44.0 Moderate protein-calorie malnutrition; R73.03 Prediabetes; Z68.1 Body mass index [BMI] 19.9 or less, adult
CPT/HCPCS: 80053; 80061; 82150; 82306; 82607; 82728; 82746; 83036; 83540; 83550; 83690; 84443; 85025; G0103